=== PATIENT | female | born 1985 | race Caucasian/White ===

== ENCOUNTER 2018-07-08 21:29 | Emergency (ER) | payer OTHER ==
[2018-07-08 21:38] VITALS: BP 97/62; PULSE 68; TEMP 98.1; BMI 24.1
--- NOTE | 2018-07-08 22:21 | PDOC ---
Attending Attestation - Resident Resident Name: Zachery Calix - ED Attending Attestation I have performed the following: I have examined & evaluated the patient, The case was reviewed & discussed with the resident, I agree w/resident's findings & plan, Exceptions are as noted - Medical Decision Making 07/08/18 22:37 Pelvic exam with speculum did not reveal any foreign body(tampon) cervix was closed,no erythema,no FB,no external lesions, no adnexal tenderness, no CMT pt routinely cuts the thread on her tampons so they are short and became concerned when she could not retrieve it. She did urinate today and may have expelled it at that time. pt discharged home <JoseTribreonna Villarreal - Last Filed: 07/08/18 22:37> - HPI HPI: 07/08/18 22:56 The patient is a 32 year old female, with no significant past medical history, who presents to the emergency department with, possible retained tampon. Patient notes using a tampon yesterday but, she did not see it come out. She notes that she normally cuts the tampon string slightly in order for it to be less visible thus, allowing it to be slightly more difficult to retrieve. She is unaware if the tampon could have fallen out during defecation. She denies recent fevers, chills, headache or dizziness. She denies recent nausea, vomit, diarrhea or constipation. She denies recent dysuria, frequency, urgency or hematuria. She denies recent chest pain or shortness of breath. - Physicial Exam PE: 07/08/18 22:56 GENERAL: Well-appearing, well-nourished. No apparent distress. HEENT: Normocephalic, atraumatic. PERRL, EOM intact. CARDIOVASCULAR: Normal S1, S2. Regular rate and rhythm. PULMONARY: Clear to auscultation bilaterally. ABDOMEN: Soft, non-distended, non-tender. PELVIC: Refer to MDM and resident exam. EXTREMITIES: Normal ROM in all four extremities. No gross deformities. SKIN: Warm, dry. No rash NEUROLOGICAL: No focal neurological deficits. <Ave Beck - Last Filed: 07/08/18 22:57> Attestations - Attestations 07/08/18 22:57 [address]ation prepared [address] Beck, acting as medical technologist prn for Tri Garcia MD. <Ave Beck - Last Filed: 07/08/18 22:57>
--- NOTE | 2018-07-08 22:22 | PDOC ---
History of Present Illness - General Chief Complaint: Foreign Body (FB) Stated Complaint: STUCK TAMPON Time Seen by Provider: 07/08/18 22:15 - History of Present Illness Initial Comments: 07/08/18 22:19 Ms. Rendon is a 32 yo female w/ no pmh who presents for evaluation of stuck tampon. Patient reports she became concerned as it has been in place for 24 hours. Denies any other symptoms at this time. The patient denies chest pain, shortness of breath, headache and dizziness. Denies fever, chills, nausea, vomit, diarrhea and constipation. Denies dysuria, frequency, urgency and hematuria. Past History - Suicide/Smoking/Psychosocial Hx Smoking History: Never smoked Information on smoking cessation initiated: No Hx Alcohol Use: No Drug/Substance Use Hx: No Review of Systems - Review of Systems Comments:: 07/08/18 22:22 GENERAL/CONSTITUTIONAL: No fever or chills. No weakness. HEAD, EYES, EARS, NOSE AND THROAT: No change in vision. No ear pain or discharge. No sore throat. CARDIOVASCULAR: No chest pain or shortness of breath RESPIRATORY: No cough, wheezing, or hemoptysis. GASTROINTESTINAL: No nausea, vomiting, diarrhea or constipation. GENITOURINARY: No dysuria, frequency, or change in urination. MUSCULOSKELETAL: No joint or muscle swelling or pain. No neck or back pain. SKIN: No rash NEUROLOGIC: No headache, vertigo, loss of consciousness, or change in strength/ sensation. ENDOCRINE: No increased thirst. No abnormal weight change HEMATOLOGIC/LYMPHATIC: No anemia, easy bleeding, or history of blood clots. ALLERGIC/IMMUNOLOGIC: No hives or skin allergy. *Physical Exam - Vital Signs Last Vital Signs Temp Pulse Resp BP Pulse Ox 98.1 F 68 20 97/62 100 07/08/18 21:33 07/08/18 21:33 07/08/18 21:33 07/08/18 21:33 07/08/18 21:33 - Physical Exam Comments: 07/08/18 22:22 GENERAL: Awake, alert, and fully oriented, in no acute distress HEAD: No signs of trauma, normocephalic, atraumatic EYES: PERRLA, EOMI, sclera anicteric, conjunctiva clear ENT: Auricles normal inspection, hearing grossly normal, nares patent, oropharynx clear without exudates. Moist mucosa NECK: Normal ROM, supple, no lymphadenopathy, JVD, or masses LUNGS: No distress, speaks full sentences, clear to auscultation bilaterally HEART: Regular rate and rhythm, normal S1 and S2, no murmurs, rubs or gallops, peripheral pulses normal and equal bilaterally. ABDOMEN: Soft, nontender, normoactive bowel sounds. No guarding, no rebound. No masses EXTREMITIES: Normal inspection, Normal range of motion, no edema. No clubbing or cyanosis. NEUROLOGICAL: Cranial nerves II through XII grossly intact. Normal speech, normal gait, no focal sensorimotor deficits SKIN: Warm, Dry, normal turgor, no rashes or lesions noted. VAGINAL: No Tampon able to be visualized. Examination non-hindered. Medical Decision Making - Medical Decision Making 07/08/18 22:33 Ms. Rendon is a 32 yo female w/ no pmh who presents for evaluation of suspected retained tampon. Patient evaluated and no tampon found. Suspect tampon fell out when patient was unaware. Discussed with patient who will watch for symptoms of fever, increased pain, etc. signifying sequelae. No concern for acute process at this time. Discharging to home. *DC/Admit/Observation/Transfer Diagnosis at time of Disposition: Foreign body - Discharge Dispostion Disposition: HOME - Referrals - Patient Instructions Printed Discharge Instructions: DI for Foreign Body in Vagina-Adult Additional Instructions: You were evaluated today in the ER for your symptoms. We evaluated you and were unable to find any retained foreign body. Please follow-up with primary care provider next week as needed for further evaluation. Return to ER if any fevers , chills, increase in pain, or other concerning symptoms. Usted fue evaluado hoy en la eun de emergencias por roslyn sntomas. Lo evaluamos y no pudimos encontrar ningn cuerpo extrao retenido. Por favor, figueroa un seguimiento con el proveedor de atencin primaria la prxima semana segn sea necesario para janie evaluacin adicional. Regrese a la eun de emergencias si presenta fiebre, escalofros, aumento del dolor u otros sntomas relacionados. Print Language: ENGLISH - Post Discharge Activity
== END 2018-07-08 22:44 | disposition home or self-care (01) ==
LOC: JER 21:29
DX: T19.2XXA Foreign body in vulva and vagina, initial encounter (principal); X58.XXXA Exposure to other specified factors, initial encounter; Y93.89 Activity, other specified; Y92.038 Other place in apartment as the place of occurrence of the external cause; Y99.8 Other external cause status
CPT/HCPCS: 99281-25

== ENCOUNTER 2018-08-19 08:17 | Emergency (ER) | payer OTHER ==
[2018-08-19 08:23] VITALS: TEMP 98.1; BMI 24.1
--- NOTE | 2018-08-19 09:05 | PDOC ---
History of Present Illness - General Chief Complaint: Pain, Acute Stated Complaint: ABD PAIN Time Seen by Provider: 08/19/18 08:46 History Source: Patient - History of Present Illness Timing/Duration: reports: constant Past History - Past Medical History Allergies/Adverse Reactions: Allergies Allergy/AdvReac Type Severity Reaction Status Date / Time No Known Allergies Allergy Verified 08/19/18 08:23 Home Medications: Ambulatory Orders Doxycycline Hyclate 100 mg PO BID #28 tablet 08/19/18 Metronidazole 500 mg PO BID #28 tablet 08/19/18 - Suicide/Smoking/Psychosocial Hx Smoking History: Never smoked Hx Alcohol Use: No Drug/Substance Use Hx: No Review of Systems - Review of Systems Constitutional: No: Chills, Fever ABD/GI: No: Nausea, Vomiting : No: Dysuria *Physical Exam - Vital Signs Last Vital Signs Temp Pulse Resp BP Pulse Ox 98.1 F 96 H 18 117/76 100 08/19/18 08:21 08/19/18 08:21 08/19/18 08:21 08/19/18 08:21 08/19/18 08:21 - Physical Exam General Appearance: Yes: Appropriately Dressed. No: Apparent Distress HEENT: positive: Normal Voice Neck: positive: Supple Respiratory/Chest: negative: Respiratory Distress Female Pelvic Exam: positive: discharge (copious amount of light green vag discharge, no odor), adnexal tenderness (on the R). negative: CMT Gastrointestinal/Abdominal: positive: Normal Bowel Sounds, Soft. negative: Tender, Distended, Guarding, Rebound Musculoskeletal: negative: CVA Tenderness Integumentary: positive: Dry, Warm Neurologic: positive: Fully Oriented, Alert, Normal Mood/Affect Medical Decision Making - Medical Decision Making 08/19/18 08:56 32 yo F, here for evaluation for possible retained fb in vagina. Pt states she placed a tampon in her vagina 1 week ago and does not remember taking it out. States she uses miniature tampons and routinely cut the string for comfort. Was seen in ED for same last month w/ no tampon found on speculum exam. Patient complaining of possible pelvic discomfort w/ discharge x 2 days. No foul odor, itch, dysuria, n/v/f/c. Sexually active w/ only, no STDs per pt. See exam Possible retained fb in vagina w/ vaginal discharge Exam remarkable for copious amount of thick, light green vag discharge adherent to vaginal wall and cervix w/ sig ttp to R adnexa, no odor, no FB visualized -genital/std cxs sent -US r/o TOA, torsion less likely -consider tx for PID 08/19/18 14:08 Upreg neg and UA and US unremarkable. Given vaginal discharge w/ pelvic pain and +R adnexal ttp, will tx presumedly for PID as d/w pt. STD cxs pending. Will dc w/ doxy and flagyl. 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 Reasons to return d/w pt *DC/Admit/Observation/Transfer Diagnosis at time of Disposition: Pelvic pain, Vaginal discharge - Discharge Dispostion Disposition: HOME Condition at time of disposition: Good - Prescriptions Prescriptions: Doxycycline Hyclate 100 mg PO BID #28 tablet Metronidazole 500 mg PO BID #28 tablet - Referrals - Patient Instructions Printed Discharge Instructions: DI for Pelvic Inflammatory Disease Additional Instructions: You were seen here for pelvic pain and vaginal discharge. Your exam did not reveal any tampon in your vaginal vault and your ultrasound was normal. Given your symptoms, we have treated you for potential infection and you were started on antibiotics to cover the many different bacteria that can cause pelvic inflammation in women, including gonorrhea and chlamydia. Take both antibiotics as directed We did send off testing for STDs, and we'll call you if results are positive. Otherwise, you can call us for results in 2-3 days at [phone] Print Language: TELUGU - Post Discharge Activity Forms/Work/School Notes: Back to Work
[2018-08-19] MEDS ORDERED: IBUPROFEN 400 MG TABLET (FP) PO ONE ×2 (09:38→10:15)
[2018-08-19 10:07] LABS: HCG,QUALITATIVE URINE Negative
[2018-08-19 10:08] LABS: EPI CELLS 7.5 /HPF (0-5/HPF); PH,URINE 5.5 (5.0-8.0); URINE APPEARANCE CLOUDY; URINE BACTERIA 266.4 /hpf (NEGATIVE); URINE BILIRUBIN NEGATIVE (NEGATIVE); URINE CASTS 20 /lpf (0-8); URINE COLOR YELLOW; URINE GLUCOSE (UA) NEGATIVE (NEGATIVE); URINE KETONE TRACE (NEGATIVE); URINE LEUK ESTERASE 3+ (NEGATIVE); URINE NITRITE NEGATIVE (NEGATIVE); URINE PROTEIN NEGATIVE (NEGATIVE); URINE RBC 4 /hpf (0-4); URINE WBC 28 /hpf (0-5)
[2018-08-19] MEDS ORDERED: AZITHROMYCIN 250 MG TABLET PO ONE (14:03)
[2018-08-19] MEDS ORDERED: AZITHROMYCIN 250 MG TABLET ONE (14:42)
[2018-08-19] MEDS ORDERED: cefTRIAXone SODIUM 1 GM VIAL ONE (14:42)
[2018-08-19 14:56] VITALS: BP 116/74; PULSE 72
== END 2018-08-19 14:57 | disposition home or self-care (01) ==
LOC: JER 08:17
DX: N73.8 Other specified female pelvic inflammatory diseases (principal); B96.89 Other specified bacterial agents as the cause of diseases classified elsewhere
CPT/HCPCS: 36415; 76830-TC; 76856-TC; 81003; 84703; 87070; 87077; 87086; 87205; 87491; 87591; 96372; 99281-25

== ENCOUNTER → 2021-01-06 | Emergency (ER) | payer OTHER ==
[~2021-01-06] MED LIST: ACETAMINOPHEN 500 MG TABLET (FP) ONE; ACETAMINOPHEN 500 MG TABLET (FP) PO ONE
[2021-01-06 15:41] VITALS: BP 107/67; PULSE 94; TEMP 100.4; BMI 23.0
== END | disposition home or self-care (01) ==
LOC: JER 15:24
DX: R05.9 Cough, unspecified (principal); R07.0 Pain in throat; R53.83 Other fatigue
CPT/HCPCS: 87070; 87804; 99283-25; C9803; U0003; U0005

== ENCOUNTER 2021-06-17 16:53 | Emergency (ER) | payer OTHER ==
[2021-06-17 17:04] VITALS: PULSE 74; TEMP 98.1; BMI 22.6
[2021-06-17 17:05] VITALS: BP 100/64
[2021-06-17] MEDS ORDERED: DIPHTH,PERTUSS(ACELL),TET 0.5 ML DISP.SYRIN IM ONE ×2 (18:02→18:06)
== END 2021-06-17 18:14 | disposition home or self-care (01) ==
LOC: JERFT 16:53
PROC: 3E0234Z Introduction of Serum, Toxoid and Vaccine into Muscle, Percutaneous Approach (ICD-10-PCS; principal; 2021-06-17)
DX: S61.213A Laceration without foreign body of left middle finger without damage to nail, initial encounter (principal); W26.8XXA Contact with other sharp object(s), not elsewhere classified, initial encounter
CPT/HCPCS: 90471; 90715; 99284-25

== ENCOUNTER 2022-06-09 11:19 | Emergency (ER) | payer OTHER ==
[2022-06-09 11:36] VITALS: RESP 18; TEMP 97.8; BMI 21.9
[2022-06-09] MEDS ORDERED: morphine CARPU-JECT 4 MG/1 ML DISP.SYRIN IVPUSH ONE (12:38)
[2022-06-09] MEDS ORDERED: SODIUM CHLORIDE 1,000 ML IV ONE (12:39)
[2022-06-09] MEDS ORDERED: ACETAMINOPHEN 1000 MG/100 ML BAG IVPB ONE (12:45)
[2022-06-09] MEDS ORDERED: METOCLOPRAMIDE HCL INJECTION 10 MG/2 ML VIAL IVPUSH ONE (12:45)
[2022-06-09] MEDS ORDERED: ACETAMINOPHEN INJECTION 100 ML IVPB ONE (13:14)
[2022-06-09] MEDS ORDERED: METOCLOPRAMIDE HCL INJECTION 10 MG/2 ML VIAL ONE (13:14)
[2022-06-09 14:19] LABS: BASO % 0.6 % (0-2.0); EOS % 1.6 % (0-4.5); HEMATOCRIT 38.5 % (32.4-45.2); HEMOGLOBIN 12.6 GM/dL (10.7-15.3); LYMPH % 38.1 % (8-40); MCH 27.6 pg (25.7-33.7); MCHC 32.8 g/dl (32.0-36.0); MEAN PLT VOLUME 7.3 fl (7.5-11.1); MONO % 8.7 % (3.8-10.2); PLATELET COUNT 293 10^3/uL (134-434); RBC 4.59 M/mm3 (3.60-5.2); RDW 13.8 % (11.6-15.6); WHITE BLOOD COUNT 4.9 K/mm3 (4.0-10.0)
[2022-06-09 14:38] LABS: ALBUMIN 3.3 g/dl (3.4-5.0); BLOOD UREA NITROGEN 8.1 mg/dL (7-18); CALCIUM 8.7 mg/dL (8.5-10.1)
[2022-06-09 14:41] LABS: CREATININE 0.6 mg/dL (0.55-1.3)
[2022-06-09 14:43] LABS: BILIRUBIN,TOTAL 0.2 mg/dL (0.2-1); TOT PROT 6.2 g/dl (6.4-8.2)
[2022-06-09 15:35] VITALS: BP 119/80; PULSE 84
== END 2022-06-09 15:34 | disposition home or self-care (01) ==
LOC: JER 11:19
PROC: 3E033GC Introduction of Other Therapeutic Substance into Peripheral Vein, Percutaneous Approach (ICD-10-PCS; principal; 2022-06-09)
DX: M79.601 Pain in right arm (principal)
CPT/HCPCS: 36415; 80053; 85025; 99284-25

== ENCOUNTER 2022-07-12 00:49 | Emergency (ER) | payer OTHER ==
[2022-07-12] MEDS ORDERED: METOCLOPRAMIDE HCL INJECTION 10 MG/2 ML VIAL IVPB ONE (02:34)
[2022-07-12] MEDS ORDERED: ACETAMINOPHEN 1000 MG/100 ML BAG IVPB ONE (02:34)
[2022-07-12] MEDS ORDERED: LIDOCAINE 5% TOPICAL PATCH TP ONE (02:34)
[2022-07-12] MEDS ORDERED: KETOROLAC TROMETHAMINE 15 MG/ML VIAL IVPUSH ONE (02:35)
[2022-07-12 02:40] VITALS: BMI 21.2
[2022-07-12] MEDS ORDERED: METOCLOPRAMIDE HCL INJECTION 10 MG/2 ML VIAL ONE (02:46)
[2022-07-12] MEDS ORDERED: LIDOCAINE 5% TOPICAL PATCH ONE (02:47)
[2022-07-12] MEDS ORDERED: KETOROLAC TROMETHAMINE 15 MG/ML VIAL ONE (02:47)
[2022-07-12] MEDS ORDERED: ACETAMINOPHEN INJECTION 100 ML IVPB ONE (02:47)
[2022-07-12 05:14] VITALS: BP 106/70; PULSE 74; RESP 14; TEMP 98.3
[2022-07-12] MEDS ORDERED: LIDOCAINE PATCH REMOVAL MC SCH (22:00)
== END 2022-07-12 05:31 | disposition home or self-care (01) ==
LOC: JER 00:49
PROC: 3E033NZ Introduction of Analgesics, Hypnotics, Sedatives into Peripheral Vein, Percutaneous Approach (ICD-10-PCS; principal; 2022-07-12)
PROC: 3E0333Z Introduction of Anti-inflammatory into Peripheral Vein, Percutaneous Approach (ICD-10-PCS; 2022-07-12)
PROC: 3E033GC Introduction of Other Therapeutic Substance into Peripheral Vein, Percutaneous Approach (ICD-10-PCS; 2022-07-12)
DX: M54.2 Cervicalgia (principal); R51.9 Headache, unspecified
CPT/HCPCS: 36415; 72125-TC; 84703; 99284-25